=== PATIENT | female | born 1990 | race Two or more races ===

== ENCOUNTER 2019-03-26 03:51 | Emergency (ER) | payer SELFPAY ==
[~2019-03-26] VITALS: Ht 152.4 cm; Wt 81.6 kg
[2019-03-26 03:51] VITALS: BP 0/0
[2019-03-26] MEDS ORDERED: CALCIUM CHLOR(10%) 100MG/ML 10ML SYRINGE IV ONE (03:54)
[2019-03-26] MEDS ORDERED: SODIUM BICARBONATE 8.4% INJ 50ML SYRINGE IV ONE (03:54)
[2019-03-26] MEDS ORDERED: EPINEPHrine HCL 1 MG/10 ML SYRG IV ONE (03:54)
== END 2019-03-26 10:28 | disposition expired ==
LOC: ER 03:53
DX: I46.9 Cardiac arrest, cause unspecified (principal)
CPT/HCPCS: 31500; 71045; 92950; 99285; J0171